=== PATIENT | female | born 1945 | race Caucasian/White ===

== ENCOUNTER → 2022-01-08 | Outpatient (CLI) | payer MEDICARE ==
[~2022-01-08] MED LIST: AMLO-187 PO; ASPI-630 PO; CARV6.2511 PO; EZET10TA20 PO; LISI-130 PO; MELO15TA23 PO; OMEP20CA16 PO
--- NOTE | 2022-01-08 12:39 | PDOC1 ---
INITIAL PAIN CONSULT DATE OF SERVICE: DOS: DATE: 01/08/22 TIME: 12:33 CHIEF COMPLAINT: Chief Complaint: Low back and right lower extremity pain HISTORY OF PRESENT ILLNESS: 76-year-old female presents with history of pain low back and right leg for about 2 years getting worse over time not the result of any specific injury or accident that she is aware of but she is had multiple injuries to the back over the years she reports carrying heavy firewood doing things that she knew would cause some back pain but still got them done. Patient reports that over the past 2 years however, more noticeable especially over the last 6 months or so more painful across the low back and into the lower extremities mostly the right posterior gluteus lateral thigh and anterior thigh as well as the lateral thigh and medial thigh on the right side with walking and standing changing positions bending stooping better with sitting or laying down generally is not awaken her sleep at night generally does not affect her bowel bladder control does not keep her from walking but does become more painful with ambulation patient reports the pain is constant and stabbing in the back sharp and throbbing shooting in the right lower extremity intermittent intensity but present throughout the day patient reports is somewhat worse in the morning when she first gets up but then as she walks it gets worse as well with standing on her feet more than about 15 to 20 minutes patient reports her disability rating 0-10 10 being the worst is a 6 with at home responsibilities to with recreation social activity occupation activity 0 and other categories of life support activity self-care sexual behavior. Patient has had physical therapy as well as TENS unit placement massage therapies also chiropractic treatment which is ongoing all of which help to a moderate extent but is not giving any long-term relief. Patient has been taking [id number] analgesics Tylenol and ibuprofen again without any long- lasting relief but does help by about 30%. Patient did have MRI scan lumbar spine showing multilevel degenerative changes most notable at L4-5 with a 3 to 4 mm anterolisthesis with diffuse bulging annulus and thecal sac decreased to 10 to 11mm with mild bilateral foraminal stenosis L5-S1 shows a 2 to 3 mm anterolisthesis with diffuse disc bulging annulus as well. Patient reports no loss of motor function with significant fatigability of the right lower extremity with standing and walking more than about 15 to 20 minutes. Patient reports no bowel or bladder incontinence. PAST MEDICAL HISTORY: PMH: Arthritis, hypertension, hearing loss, breast cancer, cigarette smoking quit 10 years ago, stroke PREVIOUS SURGERIES: Past Surgical Hx: Bilateral cataract extraction, left ankle fracture ORIF left breast biopsy, bunionectomy CURRENT MEDICATIONS: Current Meds: Active Scripts Medications Dose Route/Sig Max Daily Dose Days Date Category Meloxicam 15 Mg Tablet 1 Tab PO DAILY 30 01/08/22 Reported Aspirin 81 Mg Tab.chew 1 Tab PO DAILY 01/08/22 Reported Amlodipine Besylate 10 Mg Tablet 10 Mg PO DAILY 01/08/22 Reported Carvedilol (Carvedilol) 6.25 Mg Tablet 6.25 Mg PO DAILY 01/08/22 Reported Zetia (Ezetimibe) 10 Mg Tablet 1 Tab PO DAILY 30 01/08/22 Reported Lisinopril 40 Mg Tablet 1 Tab PO DAILY 01/08/22 Reported Omeprazole 20 Mg Capsule.dr 1 Cap PO DAILY 01/08/22 Reported ALLERGIES; Allergies: Coded Allergies: Iodinated Contrast Media (Verified Allergy, Intermediate, Rash, 01/08/22) FAMILY HISTORY: Family Hx: No major medical problems or conditions that she is aware of. SOCIAL HISTORY: Social Hx: Patient is nondrug alcohol quit smoking many years ago does not use any illegal illicit or recreational drugs is lives with her spouse is currently retired and lives locally in [facility]. REVIEW OF SYSTEMS: ROS: Positive for those items mentioned in history of present illness, all systems are reviewed, otherwise negative ,and are complete full and well-documented on patient's chart. PHYSICAL EXAM: VS: Blood pressure is 114/74 pulse 78 respirations 18 temperature 97.8 was Fahrenheit height is 5 foot weight is 144 pounds. PE: PHYSICAL EXAMINATION: GENERAL: The patient is awake, alert, oriented, appropriate, very pleasant in demeanor HEENT: Shows normocephalic, atraumatic. Extraocular movements are intact and symmetrical. Oral cavity: Mucous membranes moist and pink. Dentition is intact. NECK: Shows anterior throat supple without palpable lymphadenopathy noted. Swallow reflex symmetrical. CHEST: Shows normal on inspection. Breath sounds are clear bilaterally, distant but no rales rhonchi or wheezes auscultated bilaterally. HEART: Shows S1, S2 clear. No murmurs auscultated. ABDOMEN: Soft, nontender, nondistended. No palpable organomegaly is noted. BACK: Shows spine grossly in the midline. Normal-appearing cervical lordotic curvature. There is mildly increased thoracic kyphosis, some flattening of the lumbar lordotic curvature. Lumbar paraspinous muscles show symmetrical on inspection, on palpation shows some moderate tenderness diffusely throughout the upper, middle and lower distribution of the paraspinous muscles bilaterally and also into the lower thoracic paraspinous musculature, firm and tender, but without specific trigger points, without radiation of pain. The patient has good rotational motion of the lumbar spine, both laterally as well as extension and flexion without significant difficulty. No tenderness over the spinous processes, sacrum or sacroiliac regions. EXTREMITIES: Lower extremities show deep tendon reflexes 1+ in the patellar and tendo calcaneus tendons. Motor exam is 4 on a scale of 5 with right dorsifle xion, extension, quadriceps and hamstring flexion and 5/5 on the left. Peripheral pulses are 1+ posterior tibial. No peripheral edema is noted bilaterally. Lower extremities are warm and dry to touch, equal in color and appearance. Straight leg raise noted to be positive on the right about 30 degrees, left side is negative. Gaenslen's and Jose Antonio's maneuvers are negative bilaterally. The patient is able to stand, stand on her toes without significant difficulty loss of balance walks with a slight favoring gait does appear to favor the right lower extremity only slightly and not use any assistive device such as canes or walkers to ambulate. SKIN: Shows warm and dry, good turgor. No edema. No sores, rashes or bruising throughout. IMPRESSION: Impression: 76-year-old female with 2-year history increasing pain low back right lower extremity radicular fashion following an L4-5 dermatomal distribution. MRI scan lumbar spine as noted Arthritis Hypertension History of breast cancer History of stroke Plan: Options were discussed with the patient including conservative managements continued physical therapies and chiropractic treatments as well as interventional techniques. As patient is doing chiropractic treatments and physical therapies without significant improvement she will pursue interventional techniques. We discussed a lumbar epidural steroid injection using descriptions as well as anatomical models to describe the procedure. Patient wait for preauthorization with her insurance provider, once obtained we will have patient return for a translaminar approach L4-5 level lumbar epidural steroid injection with fluoroscopic guidance. Meantime, patient continue with stretching strength exercises and oral analgesics and chiropractic treatment as currently. LACY IBARRA MD Jan 08, 2022 12:39
== END | disposition home or self-care (01) ==
LOC: PNCL 10:52
PROVIDERS: ATTEND Anesthesiology
DX: M54.50 Low back pain, unspecified (principal); M79.604 Pain in right leg; M19.90 Unspecified osteoarthritis, unspecified site; I10 Essential (primary) hypertension; Z85.3 Personal history of malignant neoplasm of breast; Z87.891 Personal history of nicotine dependence; Z79.82 Long term (current) use of aspirin; Z79.899 Other long term (current) drug therapy; Z86.73 Personal history of transient ischemic attack (TIA), and cerebral infarction without residual deficits; Z98.890 Other specified postprocedural states
CPT/HCPCS: 99205; G0463

== ENCOUNTER → 2022-01-24 | Outpatient (CLI) | payer MEDICARE ==
[~2022-01-24] MED LIST changes: +DEXAMETHASONE PRES.FREE 10 MG/ML VIAL. ONE; +IOHEXOL 180 MG/ML 10 ML VIAL. ONE
--- NOTE | 2022-01-24 09:52 | PDOC ---
Progress Note - Pain Clinic Date of Service: DOS: DATE: 01/24/22 TIME: 09:49 Diagnosis: Dx: Lumbar radiculopathy with lumbar degenerative disc disease and lumbar spinal stenosis History or Present Illness: HPI: 76-year-old female returns for follow-up status post initial evaluation and preauthorization for lumbar epidural steroid injection. Patient reports still significant pain in the low back and bilateral lower extremities right greater than left into the posterior gluteus posterior lateral thigh lateral anterior thigh anteromedial thigh patient reports is an 8 on scale 10 is worse over the past week 8 on average 5 weeks. Patient reports aching dull sharp tight shooting in the back radiating in the right lower extremity greater than the left but present bilaterally patient reports no loss of motor function no bowel or bladder incontinence reports she is better with laying down as long she is la jody on her back or side does not awaken her from sleep at night. Patient reports no motor loss but significant fatigability of the right greater than left leg without bowel or bladder incontinence. Physical Exam: VS: Blood pressure is 112/63 pulse 70 respirations 18 temperature 97.7 F height 5 foot weight is 144 pounds. PE: PHYSICAL EXAMINATION: GENERAL: The patient is awake, alert, oriented, appropriate, very pleasant in demeanor HEENT: Shows normocephalic, atraumatic. Extraocular movements are intact and symmetrical. NECK: Shows anterior throat supple without palpable lymphadenopathy noted. Swallow reflex symmetrical. CHEST: Shows normal on inspection. Breath sounds are clear bilaterally. HEART: Shows S1, S2 clear. No murmurs auscultated. ABDOMEN: Soft, nontender, nondistended. No palpable organomegaly is noted. No rebound or guarding demonstrated. BACK: Shows spine grossly in the midline. Normal-appearing cervical lordotic curvature. There is moderately increased thoracic kyphosis, some mild flattening of the lumbar lordotic curvature. Lumbar paraspinous muscles show symmetrical on inspection, on palpation shows some moderate tenderness diffusely throughout the upper, middle and lower distribution of the paraspinous muscles, without specific trigger points, without radiation of pain. The patient has good rotational motion of the lumbar spine, both laterally as well as extension and flexion without significant difficulty. No tenderness over the spinous processes, sacrum or sacroiliac regions. EXTREMITIES: Lower extremities show deep tendon reflexes 1+ in the patellar and tendo calcaneus tendons. Motor exam is 4 on a scale of 5 with right dorsiflexion, extension, quadriceps and hamstring flexion and 5/5 on the left. Peripheral pulses are 1+ posterior tibial. No peripheral edema is noted bilaterally. Lower extremities are warm and dry. SKIN: Shows warm and dry, good turgor. No edema. No sores, rashes or bruising throughout. Procedure: Procedure: Options were discussed with patient. Patient's old chart was reviewed as her current medication regimen updated current review of systems updated today as well. We will proceed with a lumbar epidural steroid injection today with fluoroscopic guidance. Risks were discussed including but not limited to: Bleeding, infection, possibility of epidural hematoma and subsequent neurological compromise, dural puncture, headaches, spinal cord and/or nerve damage, side effects of steroid medication, and poor results regarding pain control. Patient understands and wished to proceed. Patient will return to the clinic in approximately 2 weeks for follow-up, was counseled as to return appointment, activity level, and side effect to be aware of. Medication Injected: Med Injected: Procedure is lumbar epidural steroid injection under local anesthetic using sterile prep and drape at the L4-5 level using C-arm fluoroscopic guidance in both AP and lateral views medications injected is 20 mg dexamethasone +10mL preservative-free normal saline and 2 mL contrast- condition at discharge is stable patient tolerated procedure well had no complications. Condition at Discharge: Condition at Discharge: Condition at discharge is stable, patient tolerated the procedure well and had no complications. LACY IBARRA MD Jan 24, 2022 09:52
--- NOTE | 2022-01-24 09:53 | PDOC4 ---
Procedure Note: ICD 10 Code: ICD 10 Code: M54.16 M51.36 M4 8.06 Procedure Note: Patient was consented for lumbar epidural steroid injection with fluoroscopic guidance. Risks were discussed including but not limited to: Bleeding, infection, possibility of epidural hematoma and subsequent neurological compromise, dural puncture, headaches, spinal cord and/or nerve damage, side effects of steroid medication, and poor results regarding pain control. Patient understands and wished to proceed. Procedure is lumbar epidural steroid injection under local anesthetic using joseph rile prep and drape at the L4-5 level using C-arm fluoroscopic guidance in both AP and lateral views medications injected is 20 mg dexamethasone +10mL preservative-free normal saline and 2 mL contrast- condition at discharge is stable patient tolerated procedure well had no complications. LACY IBARRA MD Jan 24, 2022 09:53
== END | disposition home or self-care (01) ==
LOC: PNCL 08:51
PROVIDERS: ATTEND Anesthesiology
DX: M51.16 Intervertebral disc disorders with radiculopathy, lumbar region (principal); M48.061 Spinal stenosis, lumbar region without neurogenic claudication; Z79.82 Long term (current) use of aspirin; Z79.899 Other long term (current) drug therapy
CPT/HCPCS: 62323; J1100; Q9965

== ENCOUNTER → 2022-01-31 | Outpatient (CLI) | payer MEDICARE ==
[~2022-01-31] MED LIST changes: -DEXAMETHASONE PRES.FREE 10 MG/ML VIAL. ONE; -IOHEXOL 180 MG/ML 10 ML VIAL. ONE
--- NOTE | 2022-01-31 11:09 | PDOC ---
Progress Note - Pain Clinic Date of Service: DOS: DATE: 01/31/22 TIME: 11:05 Diagnosis: Dx: Lumbar radiculopathy with lumbar degenerative disc disease and lumbar spinal stenosis History or Present Illness: HPI: 76-year-old female returns for follow-up status post lumbar epidural steroid injection x1. Patient reports about 80% improvement initially in the low back and right lower extremity pain patient is been increase her activity to greater ease and comfort doing a greater distance walking doing household activities with much greater ease and comfort sleeping better at night doing nurse wound with much greater ease and comfort patient reports she is decreased her oral analgesics significantly is not taking anything currently [id number] to decrease the pain patient reports still low back pain in the right side and the right lower extremity radiating the posterior gluteus posterior lateral thigh lateral anterior thigh anterior medial lower leg which describes aching and dull in the back cramping and shooting can be radiating and severe in the leg but much improved from previously patient reports is a 6 on scale 10 is worse with the past week 3 on average to and is a 2 today. Patient reports no bowel or bladder incontinence. Patient continues to do stretching and strength exercises and is doing is much more easily now and has been walking daily as well and doing some chores around the house with much greater ease and comfort. Patient reports pain is still there and is becoming more noticeable over the past few days in the low back and right lower extremity still persistent but much less intense than previously. Physical Exam: VS: Blood pressure is 129/76 pulse 81 respirations 18 temperature 98.2 F weight is 144 pounds. PE: PHYSICAL EXAMINATION: GENERAL: The patient is awake, alert, oriented, appropriate, very pleasant in demeanor HEENT: Shows normocephalic, atraumatic. Extraocular movements are intact and symmetrical. Oral cavity: Mucous membranes moist and pink. Dentition is intact. NECK: Shows anterior throat supple without palpable lymphadenopathy noted. Swallow reflex symmetrical. CHEST: Shows normal on inspection. Breath sounds are clear bilaterally, no rales or rhonchi. HEART: Shows S1, S2 clear. No murmurs auscultated. ABDOMEN: Soft, nontender, nondistended. No palpable organomegaly is noted. BACK: Shows spine grossly in the midline. Normal-appearing cervical lordotic curvature. There is moderately increased thoracic kyphosis, some mild flatten ing of the lumbar lordotic curvature. Lumbar paraspinous muscles show symmetrical on inspection, on palpation shows some moderate tenderness diffusely throughout the upper, middle and lower distribution of the paraspinous muscles, but without specific trigger points, without radiation of pain. The patient has good rotational motion of the lumbar spine, both laterally as well as extension and flexion without significant difficulty. EXTREMITIES: Lower extremities show deep tendon reflexes 1+ in the patellar and tendo calcaneus tendons. Motor exam is 4 on a scale of 5 with right dorsiflexion, extension, quadriceps and hamstring flexion and 5/5 on the left. Peripheral pulses are 1 posterior tibial. No peripheral edema is noted bilaterally. Lower extremities are warm and dry. SKIN: Shows warm and dry, good turgor. No edema. No sores, rashes or bruising throughout. Procedure: Procedure: Options discussed with patient. Patient chart was reviewed as her current medication regimen updated current review of systems updated today as well. We will preauthorize patient for a second lumbar epidural steroid injections did very well after the first injection with pain only returning mildly with about an 80% improvement overall but still with persistent lumbar radiculopathy in the right L4-5 dermatomal distribution. Once approved, patient will return to [facility] for translaminar approach L4-5 level lumbar epidural steroid injection with fluoroscopic guidance. Meantime patient continue with stretching strength exercise as well as of walking daily as tolerated and oral analgesics as necessary. Medication Injected: Med Injected: None Condition at Discharge: Condition at Discharge: Condition at discharge is stable. LACY IBARRA MD Jan 31, 2022 11:09
== END | disposition home or self-care (01) ==
LOC: PNCL 10:28
PROVIDERS: ATTEND Anesthesiology
DX: M51.16 Intervertebral disc disorders with radiculopathy, lumbar region (principal); M48.061 Spinal stenosis, lumbar region without neurogenic claudication; Z79.82 Long term (current) use of aspirin; Z79.899 Other long term (current) drug therapy; Z91.041 Radiographic dye allergy status
CPT/HCPCS: 99212; G0463

== ENCOUNTER → 2022-02-14 | Outpatient (CLI) | payer MEDICARE ==
[~2022-02-14] MED LIST changes: +methylPREDNISolone ACETATE 40 MG/ML VIAL. ONE; +methylPREDNISolone ACETATE 80 MG/ML VIAL. ONE
--- NOTE | 2022-02-14 10:06 | PDOC ---
Progress Note - Pain Clinic Date of Service: DOS: DATE: 02/14/22 TIME: 10:03 Diagnosis: Dx: Lumbar radiculopathy with lumbar degenerative disease and lumbar spinal stenosis History or Present Illness: HPI: 76-year-old female returns for follow-up status post lumbar epidural steroid injection x1. Patient reports about 50% improvement for about 4 weeks following the last injection with pain returning down the low back and into the right lower extremity posterior gluteus posterior lateral thigh lateral anterior thigh anteromedial thigh and medial lower leg at times patient reports has been increasing activities greater ease and comfort doing greater amounts of work at home walking greater distances doing yard work with much greater comfort patient reports that she was raking several bags full of leaves over the past week without significant increase in pain. Patient reports pain is still present in the low back and the right leg and still walks with a significant limp patient reports it wakes her from sleep occasionally but not most nights she needs to reposition if she does have the pain waking her from sleep. Patient reports pain is aching and dull in the back shooting type as well as burning can be cramping and stabbing in the leg as well radiating into the right posterior calf at times as well patient reports no loss of motor function patient rates her pain as an 8 on scale 10 is worse over the past week 5 on average to its least is a 5 today. Patient reports no bowel or bladder incontinence. Physical Exam: VS: Blood pressure is 131/78 pulse 80 respirations 18 temperature 98.1 F weight is 146 pounds. PE: PHYSICAL EXAMINATION: GENERAL: The patient is awake, alert, oriented, appropriate, very pleasant in demeanor HEENT: Shows normocephalic, atraumatic. Extraocular movements are intact and symmetrical. Oral cavity: Mucous membranes moist and pink. NECK: Shows anterior throat supple without palpable lymphadenopathy noted. Swallow reflex symmetrical. CHEST: Shows normal on inspection. Breath sounds are clear bilaterally, no rales rhonchi wheezes auscultated. HEART: Shows S1, S2 clear. No murmurs auscultated. ABDOMEN: Soft, nontender, nondistended. No palpable organomegaly is noted. BACK: Shows spine grossly in the midline. Normal-appearing cervical lordotic curvature. There is slightly increased thoracic kyphosis, some minor flattening of the lumbar lordotic curvature. Lumbar paraspinous muscles show symmetrical on inspection, on palpation shows some moderate tenderness diffusely throughout the upper, middle and lower distribution of the paraspinous muscles, but without specific trigger points, without radiation of pain. The patient has good rotational motion of the lumbar spine, both laterally as well as extension and flexion without significant difficulty. No tenderness over the spinous processes, sacrum or sacroiliac regions. EXTREMITIES: Lower extremities show deep tendon reflexes 1+ in the patellar and tendo calcaneus tendons. Motor exam is 4 on a scale of 5 with right dorsiflexion, extension, quadriceps and hamstring flexion and 5/5 on the left. Peripheral pulses are 1+ posterior tibial. No peripheral edema is noted bilaterally. Lower extremities are warm and dry. SKIN: Shows warm and dry, good turgor. No edema. No sores, rashes or bruising throughout. Procedure: Procedure: Options discussed with the patient. Patient's chart was reviewed as her current medication regimen updated current review of systems updated today as well. We will proceed with a lumbar epidural steroid injection today with fluoroscopic guidance. Risks were discussed including but not limited to: Bleeding, infection, possibility of epidural hematoma and subsequent neurological compromise, dural puncture, headaches, spinal cord and/or nerve damage, side effects of steroid medication, and poor results regarding pain control. Patient understands and wished to proceed. Patient will return to the clinic in approximately 2 weeks for follow-up, was counseled as return appointment, activity level, and side effects to be aware of. Medication Injected: Med Injected: Procedure is lumbar epidural steroid injection under local anesthetic using sterile prep and drape at the L4-5 level using C-arm fluoroscopic guidance in both AP and lateral views medications injected is 120 mg methylprednisolone +10mL preservative-free normal saline and 2 mL contrast- condition at discharge is stable patient tolerated procedure well had no complications. Condition at Discharge: Condition at Discharge: Condition at discharge stable, patient tolerated procedure well and had no complications. LACY IBARRA MD Feb 14, 2022 10:06
--- NOTE | 2022-02-14 10:07 | PDOC4 ---
Procedure Note: ICD 10 Code: ICD 10 Code: M54.16 M51.36 M48.06 Procedure Note: Patient was consented for lumbar epidural steroid injection with fluoroscopic guidance. Risks were discussed including but not limited to: Bleeding, infection, possibility of epidural hematoma and subsequent neurological compromise, dural puncture, headaches, spinal cord and/or nerve damage, side effects of steroid medication, and poor results regarding pain control. Patient understands and wished to proceed. Procedure is lumbar epidural steroid injection under local anesthetic using ster ile prep and drape at the L4-5 level using C-arm fluoroscopic guidance in both AP and lateral views medications injected is 120 mg methylprednisolone +10mL preservative-free normal saline and 2 mL contrast- condition at discharge is stable patient tolerated procedure well had no complications. LACY IBARRA MD Feb 14, 2022 10:07
== END | disposition home or self-care (01) ==
LOC: PNCL 09:16
PROVIDERS: ATTEND Anesthesiology
DX: M51.16 Intervertebral disc disorders with radiculopathy, lumbar region (principal); M48.061 Spinal stenosis, lumbar region without neurogenic claudication; Z79.82 Long term (current) use of aspirin; Z79.899 Other long term (current) drug therapy; Z91.041 Radiographic dye allergy status
CPT/HCPCS: 62323; J1030; J1040